=== PATIENT | male | born 1975 | race African-American/Black ===

== ENCOUNTER 2019-04-12 16:42 | Emergency (ER) | payer BC, OTHER ==
[2019-04-12 17:01] VITALS: BP 145/95
--- NOTE | 2019-04-12 17:31 | UC ---
Throat Pain/Nasal Pedro HPI - HPI Summary HPI Summary: Pt with sore throat, ear congestion, PND progressive x 4 days. Pt's children sick last week. no documented fever, but felt warm. No cp, sob + cough with yellow sputum. + fatigue Pt's meds reviewed pt here visiting from out of town - History of Current Complaint Chief Complaint: UCRespiratory Stated Complaint: SORE THROAT Time Seen by Provider: 04/12/19 17:29 Hx Obtained From: Patient Onset/Duration: Gradual Onset Severity: Mild Pain Intensity: 8 - Allergies/Home Medications Allergies/Adverse Reactions: Allergies Allergy/AdvReac Type Severity Reaction Status Date / Time Penicillins Allergy See Comment Verified 04/12/19 17:01 Home Medications: Home Medications Irbesartan/Hydrochlorothiazide [Irbesartan/Hydrochlorothi 150-12.5 mg] 1 tab PO 04/12/19 [History] Multivitamin [Multivitamins] 1 cap PO 04/12/19 [History] Simvastatin 20 mg PO 04/12/19 [History] PMH/Surg Hx/FS Hx/Imm Hx Previously Healthy: Yes - Surgical History Surgical History: None - Family History Known Family History: Positive: Non-Contributory - Social History Occupation: Employed Full-time Lives: With Family Alcohol Use: Occasionally Substance Use Type: None Smoking Status (MU): Never Smoked Tobacco Review of Systems All Other Systems Reviewed And Are Negative: Yes Constitutional: Positive: Negative Skin: Positive: Negative ENT: Positive: Sore Throat, Ear Ache, Sinus Congestion, Sinus Pain/Tenderness Respiratory: Positive: Cough Physical Exam - Summary Physical Exam Summary: Vital Signs Reviewed: Yes A+Ox3, no distress, congested Eyes: Conjunctiva Clear, EL. EOM intact and full ENT: Hearing grossly normal fluid left TM, mild retrction, turbinates inflameed and boggy, thick PND, mild erythema, no exudate uvula midline, no exudate, no erythema Neck: Positive: Supple Respiratory: Positive: No respiratory distress, No accessory muscle use + CTA throughout no w/r, coarse cough Cardiovascular: RRR nl s1, s2 no m/r CBT <2 sec abd soft + BS nt/nd no guarding, no distension Musculoskeletal Exam: HOLGUIN x 4 without difficulty Strength Intact, ROM Intact Neurological: Positive: Alert, + sensation throughout Psychological: Positive: Normal Response To Family Skin: Positive: no rash, no ecchymosis Triage Information Reviewed: Yes Vital Signs: Initial Vital Signs Temp 98.1 F 04/12/19 16:58 Pulse 80 04/12/19 16:58 Resp 18 04/12/19 16:58 BP 145/95 04/12/19 16:58 Pulse Ox 100 04/12/19 16:58 Throat Pain/Nasal Course/Dx - Course Course Of Treatment: Pt with progressive head congestion, pnd, sore throat and cough + sick contct + traveling. VSS pt with inflammed turbinates with PND coase cough strep neg d/wpt at length flonase hydrate decongestant recommend abx if sx after 48 hour - will write as leaving state return precautions agreement with plan elevate BP = h/o similar - cautioned pt with decongestant - Differential Dx/Diagnosis Provider Diagnosis: Rhinosinusitis, Pharyngitis Discharge - Sign-Out/Discharge Documenting (check all that apply): Patient Departure All imaging exams completed and their final reports reviewed: No Studies - Discharge Plan Condition: Stable Disposition: HOME Prescriptions: Azithromycin TAB* [Zithromax TAB (Z-VIV) 250 mg #6 tabs] 2 tab PO .TODAY, THEN 1 DAILY #1 viv Fluticasone NASAL SPRAY 50MCG* [Flonase NASAL SPRAY 50MCG*] 2 spray BOTH NARES DAILY #1 btl Patient Education Materials: Pharyngitis (ED) Referrals: No Primary Care Phys,NOPCP [Primary Care Provider] - Additional Instructions: - Okay to alternate ibuprofen (Advil, Motrin) and Tylenol every 3 hours for pain. Take with food. Do NOT take for more than 4-5 days - Okay to gargle and spit warm salt water every 4 hours as needed for pain - Stay well hydrated - frequent sips of cold fluids will be soothing to your throat (popsicles, jello, ice cream, ice water). Avoid excess caffeine until your symptoms have resolved. -Throat infections are spread by oral secretions - do not share eating or drinking utensils until you symptoms are resolved. Clean items that may get your secretions such as cell phones, ipads, computer mouse, television remotes. Once you start to feel or after you have been on antibiotics for 2 days, change your toothbrush and your pillowcase. - use nasal spray as prescribed - humidify the air in the room where you sleep - boil water, run a hot steam shower, vaporizer, cups of water by heat register - Okay to take over the counter Carline Uriarte Zyretec - Contact your doctor to arrange a follow-up appointment as needed - Billing Disposition and Condition Condition: STABLE Disposition: Home
== END 2019-04-12 17:56 | disposition home or self-care (01) ==
LOC: UCEAST 16:42
DX: J02.9 Acute pharyngitis, unspecified (principal); J32.9 Chronic sinusitis, unspecified; Z88.0 Allergy status to penicillin
CPT/HCPCS: 87651; 99202; G0463